=== PATIENT | male | born 2000 | race African-American/Black ===

== ENCOUNTER 2023-09-08 16:29 | Emergency (ER) | payer OTHER ==
[~2023-09-08] VITALS: Ht 177.8 cm; Wt 93.2 kg
[2023-09-08 22:23] VITALS: BP 145/87; TEMP 98.1; O2SAT 99
== END 2023-09-08 22:25 | disposition home or self-care (01) ==
LOC: M ED 16:29
DX: M79.605 Pain in left leg (principal); Z91.018 Allergy to other foods

== ENCOUNTER 2023-09-16 18:37 | Emergency (ER) | payer OTHER ==
[~2023-09-16] VITALS: Ht 175.3 cm; Wt 88.6 kg
[2023-09-16 23:09] VITALS: BP 139/71; TEMP 97.8; O2SAT 99
== END 2023-09-16 23:20 | disposition home or self-care (01) ==
LOC: M ED 18:37
DX: S80.911A Unspecified superficial injury of right knee, initial encounter (principal); Y92.9 Unspecified place or not applicable; Y93.66 Activity, soccer; Y99.9 Unspecified external cause status; Z91.018 Allergy to other foods